=== PATIENT | female | born 1980 | race Caucasian/White ===

== ENCOUNTER 2020-05-09 15:21 | Outpatient (REF) | payer OTHER, SELFPAY ==
--- NOTE | 2020-05-09 14:45 | PAPFT_PTH ---
PATIENT: Myra Cobb LOC: [facility] U#:[id number] AGE/SX: 40/F ROOM: RE05/09/[address]: Emma Carrasco APRN : 1980 BED: DIS: 05/09/2020 SPEC #: [id number] RECD: 05/10/20 13:02 STATUS: SERA SHAY #: [id number] THOMAS: 05/09/20 14:[address]: Emma Carrasco DEPT: [facility] Cytology RECD BY: Silvia Keys Tissues: 1 - CX/ENDOCX FOR PAP SMEARS Procedures: PAP THIN PREP/[facility] Screening HPV DNA PROBE Comments: [id number]
== END 2020-05-09 15:22 | disposition home or self-care (01) ==
LOC: LBN 15:21
PROVIDERS: PCP Nurse Practitioner; Visit Provider Nurse Practitioner
DX: Z12.4 Encounter for screening for malignant neoplasm of cervix (principal); Z11.51 Encounter for screening for human papillomavirus (HPV)
CPT/HCPCS: 88142; 87624